=== PATIENT | male | born 1955 | race Caucasian/White ===

== ENCOUNTER 2017-02-15 20:48 | Observation (INO) | payer OTHER ==
[~2017-02-15] VITALS: Ht 180.3 cm; Wt 172.4 kg
--- NOTE | 2017-02-15 21:13 | ED DYSPNEA/ASTHMA COMPLAINT ---
History of Present Illness General Chief Complaint: Fall Stated Complaint: FALL S/P SYNOCOPE; COUGH, CONJESTION Source: patient, family, EMS Exam Limitations: no limitations Vital Signs & Intake/Output Vital Signs & Intake/Output Vital Signs Date Time Temp Pulse Resp B/P B/P Pulse O2 O2 Flow FiO2 Mean Ox Delivery Rate 02/16 0016 16 95 Nasal 2.0L Cannula 02/15 2348 94 02/15 2253 98.5 88 20 130/60 91 Room Air 02/15 2051 98.3 88 18 157/80 96 Room Air ED Intake and Output 02/16 0000 02/15 1200 Intake Total Output Total Balance Patient 380 lb Weight Weight Reported by Patient Measurement Method Allergies Uncoded Allergies: Food Allergies NKA Med Allergies NKDA Triage Note: PT BIBA FROM [facility] IN [place] C/[place] F[place]. PT A&0X3 ON ARRRIVAL, PT STATES HE HAS HAD A PRODUCTIVE COUGH WITH GREEN SPUTUM FOR 1X WEEK THAT LEAD TO INCREASED SOB. PT STATES HE WAS DRINKING TONIGHT TO CELEBRATE HIS BIRTHDAY (5+ BEERS) PT STATES "I WAS SITTING ON THE BAR STOOL FELT CONGESTED, STARTED TO COUGH, LOST MY BREATH AND APPARENTLY I PASSED OUT" +LOC, PT STATES THAT EMS STATED HE FELL STRAIGHT BACK. PT AMBULATORY ON SCENE PER EMS. PER EMS PT HAD AN ICE PACK ON RIGHT SIDE OF HEAD WHEN THEY ARRIVED. PT DENIES ANY NECK OR PIEDRA TENDERNESS AT THIS TIME. PT STATES THAT HIS MID BACK IS 10/10 PAIN. PT STATES WHEN HE LIFTS LEFT ARM (FULL ROM) ABOVE HIS HEAD HE HAS PAIN. PT PLACED ON MONITOR. PT CHANGED INTO GOWN. PT STATED LAST SELF MEDICATED WITH MUCINEX THIS MORNING WITH NO RELIEF. Triage Nurses Notes Reviewed? yes Onset: Abrupt Duration: minute(s):, day(s):, constant Timing: single episode today HPI: 62-year-old male comes into the emergency room for further evaluation after passing out earlier prior to arrival. Patient reports that he's been sick for the past week with shortness of breath and cough with some mucus production. He reports that he was at the bar having a few beers BECAUSE ITS his birthday. He went to sit on the chair and then does not remember what happened and woke up on the ground. Denies any preceding chest pain palpitations. Denies anyvomiting. Denies any prior history of this. He reports that since the fall he has been experiencing some upper back pain that hurts. (Marcus Pearson) Past History Travel History Traveled to [place] past 21 day No Medical History Any Pertinent Medical History? see below for history Neurological: NONE EENT: NONE Cardiovascular: hypertension Respiratory: NONE Gastrointestinal: NONE Hepatic: NONE Renal: NONE Musculoskeletal: NONE Psychiatric: depression Endocrine: NONE Influenza Vaccine: 12/15/07 Surgical History Surgical History: non-contributory Psychosocial History Services at Home None What is your primary language Syrian Tobacco Use: Never used ETOH Use: heavy use Illicit Drug Use: denies illicit drug use Family History Hx Contributory? No (Marcus Pearson) Review of Systems Review of Systems Constitutional: Reports: no symptoms. EENTM: Reports: no symptoms. Respiratory: Reports: see HPI. Cardiovascular: Reports: no symptoms. GI: Reports: no symptoms. Genitourinary: Reports: no symptoms. Musculoskeletal: Reports: see HPI. Skin: Reports: no symptoms. Neurological/Psychological: Reports: no symptoms. Hematologic/Endocrine: Reports: no symptoms. Immunologic/Allergic: Reports: no symptoms. All Other Systems: Reviewed and Negative (Marcus Pearson) Physical Exam Physical Exam General Appearance: well developed/nourished, no apparent distress, alert, awake Head: atraumatic, normal appearance Eyes: Bilateral: normal appearance. Ears, Nose, Throat: normal ENT inspection, hearing grossly normal Neck: normal inspection Respiratory: normal breath sounds, no respiratory distress Cardiovascular: regular rate/rhythm Gastrointestinal: soft Extremities: normal inspection Neurologic/Psych: awake, alert, oriented x 3, normal gait Skin: intact, normal color Core Measures ACS in differential dx? No CVA/TIA Diagnosis No Sepsis Present: No Sepsis Focused Exam Completed? No (Marcus Pearson) Progress Differential Diagnosis: asthma, bronchitis, CHF, COPD, pericarditis, pulmonary embolism, pneumonia, pneumothorax, unstable angina, cardiac arrhythmia, valvular disorder, Plan of Care: Orders Procedure Date/time Status Regular Diet 02/16 B Active Patient Data 02/16 38 Active OXYGEN SETUP (GEN) 02/16 17 Active Saline Lock 02/[address] in observation 02/16 17 Active Vital Signs 02/16 17 Active Activity/Ambulation 02/16 17 Active Code Status 02/16 17 Active Add-on Test (ER Only) 02/16 2112 Active Telemetry/Etl Lead 02/15 2105 Active TROPONIN LEVEL 02/15 2105 Complete ETHANOL 02/15 2105 Complete D-DIMER 02/15 2105 Complete COMPREHENSIVE METABOLIC PANEL 02/15 2105 Complete CBC WITHOUT DIFFERENTIAL 02/15 2105 Complete B-TYPE NATRIURETIC PEP (BNP) 02/15 2105 Complete EKG 02/15 2101 Active Current Medications Sig/Jenna Start time Last Medication Dose Stop Time Status Admin Hydromorphone HCl 1 MG ONCE ONE 02/16 99 UNVr 02/16 (Dilaudid) 02/16 Laboratory Tests 02/15/172124: Anion Gap 14, Estimated GFR > 60, BUN/Creatinine Ratio 20.0, Glucose 98, Calcium 8.9, Total Bilirubin 0.3, AST 26, ALT 43, Alkaline Phosphatase 64, Troponin I 0.01, Lmm-D-Vjkrnhosyfz Pept 116, Total Protein 6.5, Albumin 3.6, Globulin 2.9, Albumin/Globulin Ratio 1.2, D-Dimer High Sensitivty 256 H, CBC w Diff NO MAN DIFF REQ, RBC 4.45 L, MCV 91.9, MCH 31.4 H, RDW 13.7, MPV 8.2, Gran % 65.9, Lymphocytes % 19.2 L, Monocytes % 9.5 H, Eosinophils % 4.1, Basophils % 1.3, Absolute Granulocytes 7.6 H, Absolute Lymphocytes 2.2, Absolute Monocytes 1.1 H, Absolute Eosinophils 0.5, Absolute Basophils 0.2, PUBS MCHC 34.2, Serum Alcohol 108.0 Diagnostic Imaging: Viewed by Me: CT Scan. Discussed w/RAD: CT Scan. Radiology Impression: PATIENT: ULISES DAVIS PRESENT AGE: 62 PATIENT ACCOUNT NO: [id number] : 56 LOCATION: [facility] ORDERING PHYSICIAN: Marcus CLEMONS SERVICE DATE: 02/15/17 EXAM TYPE : CAT - CT CHEST WO IV CONTRAST EXAMINATION: CT CHEST WITHOUT CONTRAST CLINICAL INFORMATION: Pain. Syncope. COMPARISON: 03/16/2009. TECHNIQUE: Contiguous axial thin section helical images of the chest were performed without contrast. The data set was reformatted in the coronal and sagittal planes and reviewed on an independent workstation. DLP: 1446 mGy-cm. FINDINGS: The heart is of normal size. There is no pericardial effusion. There is neither mediastinal, hilar nor axillary lymphadenopathy. There are no chest wall masses. Review of lung windows demonstrates that there are neither pleural effusions nor pneumothoraces. There are no consolidations. There is a subpleural mass within the left hemithorax lateral to the lingula measuring 1.1 x 2.8 cm identified in image 261/528. This is increased in size from the exam approximately 8 years ago.. Images of the upper abdomen demonstrate that the liver is of normal size and attenuation without focal lesions. Normal adrenal glands are identified. There is a calculus within the gallbladder lumen without gallbladder wall thickening. Bone windows: Neither sclerotic nor lytic bone lesions are identified. IMPRESSION: No evidence for acute thoracic injury. Interval increase in size of subpleural left hemithoracic mass adjacent to the lingula. This is demonstrated slow growth over the past 8 years. Cholelithiasis without evidence of cholecystitis. DICTATED BY: Lokesh Rose MD DATE/TIME DICTATED:02/15/172241 TRACK VEHICLE REPAIRER:LIYA DATE/TIME TRANSCRIBED:02/15/172241 CONFIDENTIAL, DO NOT COPY WITHOUT APPROPRIATE AUTHORIZATION. <Electronically signed in Other Vendor System> SIGNED BY: Lokesh Rose MD 02/15/172250 Initial ED EKG: normal sinus rhythm, rate (89), Borderline T-wave abnormalities (Marcus Pearson) Departure Departure Disposition: STILL A PATIENT Condition: Stable Clinical Impression Primary Impression: Syncope and collapse Secondary Impressions: Lung mass Referrals: Angie Hall MD (PCP/Family) Departure Forms: Customer Survey General Discharge Information Observation Note Spoke With: Kellen Koroma MD Physician Advisor Notified: FAHAD MONTALVO DO Place Patient In: Non-ED OBS Care Area Rationale for Observation: My rational for observation is as follows . Patient will require cardiac telemetry. Serial troponins. Possibly echocardiogram. Cardiac consultation. Pulmonary consultation. Not medically safe for discharge at this time. (Marcus Pearson) PA/PROGRAM RESEARCH SPECIALIST Co-Sign Statement Statement: ED Attending supervision documentation- x I saw and evaluated the patient. I have also reviewed all the pertinent lab results and diagnostic results. I agree with the findings and the plan of care as documented in the PA's/PROGRAM RESEARCH SPECIALIST's documentation. Syncope unclear etiology [] I have reviewed the ED Record and agree with the PA's/PROGRAM RESEARCH SPECIALIST's documentation. [] Additions or exceptions (if any) to the PAs/PROGRAM RESEARCH SPECIALIST's note and plan are summarized below: [] (Eliu MCDERMOTT,Federico) Critical Care Note Critical Care Note Critical Care Time: non-applicable (Marcus Pearson)
[2017-02-15 21:39] LABS: ABSOLUTE BASOPHIL COUNT 0.2 /CUMM (0.0-0.2); ABSOLUTE EOSINOPHIL COUNT 0.5 /CUMM (0.0-0.7); ABSOLUTE GRANULOCYTE CT 7.6 /CUMM (1.4-6.5); ABSOLUTE LYMPH COUNT 2.2 /CUMM (1.2-3.4); ABSOLUTE MONOCYTE COUNT 1.1 /CUMM (0.10-0.60); BASOPHIL % 1.3 % (0.0-2.0); EOSINOPHIL % 4.1 % (0-5); GRANULOCYTE % 65.9 % (42.2-75.2); HEMATOCRIT 40.9 % (42-52); MEAN CORPUSCULAR HGB 31.4 PG (27.0-31.0); MEAN CORPUSCULAR HGB CONC 34.2 G/DL (33.0-37.0); MEAN CORPUSCULAR VOLUME 91.9 FL (80.0-94.0); MEAN PLATELET VOLUME 8.2 FL (7.4-10.4); PLATELET COUNT 278 /CUMM (130-400); RBC DISTRIBUTION WIDTH 13.7 % (11.5-14.5); RED BLOOD CELL CT 4.45 /CUMM (4.70-6.10); WHITE BLOOD CELL COUNT 11.5 /CUMM (4.8-10.8)
--- NOTE | 2017-02-15 22:51 | CT SCAN REPORT ---
EXAMINATION: CT CHEST WITHOUT CONTRAST CLINICAL INFORMATION: Pain. Syncope. COMPARISON: 03/16/2009. TECHNIQUE: Contiguous axial thin section helical images of the chest were performed without contrast. The data set was reformatted in the coronal and sagittal planes and reviewed on an independent workstation. DLP: 1446 mGy-cm. FINDINGS: The heart is of normal size. There is no pericardial effusion. There is neither mediastinal, hilar nor axillary lymphadenopathy. There are no chest wall masses. Review of lung windows demonstrates that there are neither pleural effusions nor pneumothoraces. There are no consolidations. There is a subpleural mass within the left hemithorax lateral to the lingula measuring 1.1 x 2.8 cm identified in image 261/528. This is increased in size from the exam approximately 8 years ago.. Images of the upper abdomen demonstrate that the liver is of normal size and attenuation without focal lesions. Normal adrenal glands are identified. There is a calculus within the gallbladder lumen without gallbladder wall thickening. Bone windows: Neither sclerotic nor lytic bone lesions are identified. IMPRESSION: No evidence for acute thoracic injury. Interval increase in size of subpleural left hemithoracic mass adjacent to the lingula. This is demonstrated slow growth over the past 8 years. Cholelithiasis without evidence of cholecystitis.
--- NOTE | 2017-02-16 01:25 | History & Physical ---
Rafael Lennon MD 02/16/17 0124: General Information and HPI MD Statement: I have seen and personally examined ULISES DAVIS and documented this H&P. The patient is a 62 year old M who presented with a patient stated chief complaint of [passing out and fall]. Source of Information: patient, old records Exam Limitations: no limitations History of Present Illness: 62 y/o male with PMH of HTN, CHAS on CPAP, depression presents this admission with chief complaint of fall after passing out. Patient states that earlier this evening he was out with friends for dinner and drinks to celebrate his birthday. States that he does not remember falling or passing out. States the last thing he remembers is waking up on the floor. States he was told he had passed out for a few seconds. Patient denies symptoms of seizure like activity, denies urinary or fecal incontinence, metallic taste in mouth or confusion after the episode. States he was told he hit his head however did not recall. Denies any headache or pain. Denies visual disturbances. Prior to his syncopal episode patient states that he had a coughing fit. Patient denies any chest pain, warmth, palpitations, lightheadedness prior to losing consciousness. Patient states this has never happened before. States that he's had a productive cough with greenish yellow phlegm for the past week since . States he received his flu shot one day prior to feeling ill. Patient recently underwent an UGI Endoscopy in preparation for bariatric surgery. Has been following with a educational recruiter for diet management. States his last visit was today. Does not further elaborate on current diet. Patient states he has been going for an ECHO for presurgical evaluation - states he believes his calender wind up helper is Dr. Reaves. ROS: + SOB with exertion and orthopnea. Denies fever, chills, n/v/c/d, PMH: as above, basal cell carcinoma PSH: appendectomy SH: Drinks 6-7 beers per week, denies tobacco or illicit drug use. 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 FH: no history of sudden cardiac or significant cardiac history in family Allergies: NKA to medication/food/enviroment Meds: Patient states he believes he takes hydrochlorothiazide 25mg and lisinopril 20mg. Also states he takes two medications for depression. Is unsure of the names/doses. States he thinks one is wellbutrin 100mg BID. On admission: Vitals: T: 98.5, HR: 88, RR: 16-20, BP: 130/60, Pulse Ox: 91-96% NC 2.0L NC Labs: WBC: 11.5, H/H: 14.0/40.9, Platelets: 278 Na: 138, K: 4.3, Cl: 100, CO2: 25, BUN: 16, Cr: 0.8, Glucose: 98, Calcium: 8.9, Tbili: 0.3, AST: 26, ALT: 43, Alk Phos: 64, Troponin: 0.91, BNP: 116, D-dimer: 256, Alcohol level: 108.0 EKG: CT Chest: No evidence for acute thoracic injury. Interval increase in size of subpleural left hemithoracic mass adjacent to the lingula. This is demonstrated slow growth over the past 8 years. Cholelithiasis without evidence of cholecystitis. In the ED: DuoNeb Treatment x1, Dilaudid 1mg IV x2 Allergies/Medications Allergies: Coded Allergies: No Known Allergies (02/16/17) Past History Travel History Traveled to [place] past 21 day No Medical History Neurological: NONE EENT: NONE Cardiovascular: hypertension Respiratory: NONE Gastrointestinal: NONE Hepatic: NONE Renal: NONE Musculoskeletal: NONE Psychiatric: depression Endocrine: NONE Influenza Vaccine: 12/15/07 Surgical History Surgical History: non-contributory Past Family/Social History Psychosocial History Services at Home: None ETOH Use: heavy use Illicit Drug Use: denies illicit drug use Review of Systems Review of Systems Constitutional: Denies: chills, fever. Cardiovascular: Reports: see HPI. Respiratory: Reports: see HPI. GI: Denies: no symptoms. Genitourinary: Denies: no symptoms. Musculoskeletal: Denies: no symptoms. Skin: Reports: moles. Neurological/Psychological: Reports: anxiety, depressed. Exam & Diagnostic Data Last 24 Hrs of Vital Signs/I&O Vital Signs Date Time Temp Pulse Resp B/P B/P Pulse O2 O2 Flow FiO2 Mean Ox Delivery Rate 02/16 1725 99.4 80 18 / 97 Room Air 02/16 1714 99.4 80 18 15302/16 1714 99.4 80 18 153/67 97 Room Air 02/16 1604 98.0 78 18 154/78 95 Room Air 02/16 1446 98.5 81 18 162/71 95 Room Air 02/16 1034 98.4 77 18 173/73 02/16 1011 98.1 73 19 158/74 02/16 0753 98.1 73 19 158/74 95 Nasal 2.0L Cannula 02/16 0605 98.2 78 20 147/68 96 Nasal 2.0L Cannula 02/16 0302 65 20 138/68 95 Nasal 2.0L Cannula 02/16 0016 16 95 Nasal 2.0L Cannula 02/15 2348 94 02/15 2253 98.5 88 20 130/60 91 Room Air 02/15 2052 98.3 88 18 157/80 96 Room Air Intake & Output 02/16 1600 02/16 0800 02/16 0000 Intake Total 600 Output Total Balance 600 Intake, Oral 600 Patient 380 lb 380 lb Weight Weight Reported by Patient Measurement Method Physical Exam General Appearance Alert, Oriented X3, Cooperative, No Acute Distress HEENT Atraumatic, PERRLA, EOMI, Mucous Membr. moist/pink Neck Supple, No JVD Cardiovascular Regular Rate, Normal S1, Normal S2, No Murmurs Lungs Clear to Auscultation, Normal Air Movement Abdomen Normal Bowel Sounds, Soft, No Tenderness Neurological Normal Speech, Strength at 5/5 X4 Ext, Normal Tone, Sensation Intact, Cranial Nerves 3-12 NL Extremities No Clubbing, No Cyanosis, Normal Pulses, No Tenderness/Swelling, bilateral lower extremity edema with chronic venous stasis changes Vascular Normal Pulses, Pulses Symmetrical Last 24 Hrs of Labs/Brian: Laboratory Tests 02/15/172124: Anion Gap 14, Estimated GFR > 60, BUN/Creatinine Ratio 20.0, Glucose 98, Calcium 8.9, Total Bilirubin 0.3, AST 26, ALT 43, Alkaline Phosphatase 64, Troponin I 0.01, Ohe-L-Ecxdunursez Pept 116, Total Protein 6.5, Albumin 3.6, Globulin 2.9, Albumin/Globulin Ratio 1.2, D-Dimer High Sensitivty 256 H, CBC w Diff NO MAN DIFF REQ, RBC 4.45 L, MCV 91.9, MCH 31.4 H, RDW 13.7, MPV 8.2, Gran % 65.9, Lymphocytes % 19.2 L, Monocytes % 9.5 H, Eosinophils % 4.1, Basophils % 1.3, Absolute Granulocytes 7.6 H, Absolute Lymphocytes 2.2, Absolute Monocytes 1.1 H, Absolute Eosinophils 0.5, Absolute Basophils 0.2, PUBS MCHC 34.2, Serum Alcohol 108.0 Microbiology 02/16 634 URINE ROUT: Legionella Antigen - COMP 02/16 634 URINE ROUT: Streptococcus pneumoniae Antigen (M - COMP 02/16 0450 NASOPHARYN: Influenza Virus A & B Rapid Smear - COMP 02/16 209 LOWER RESP: Respiratory Culture - COLB 02/16 209 LOWER RESP: Gram Stain - COLB Assessment/Plan Assessment: Patient is a 62 y/o male with PMH of HTN, CHAS on CPAP, depression presents this admission with a syncopal episode most likely vasovagal 2/2 to intense coughing fit. Patient will be observed on the telemetry floor for the followin. Syncopal episode likely 2/2 to vasovagal. Other etiologities to consider include neurocardiac however less likely based on presentations. Patient recently underwent presurgical evaluation with a reportedly normal ECHO. * serial troponin and EKG * Cardiology consult in AM: pt reports seeing Dr. Reaves * Obtain ECHO findings from oupatient calender wind up helper office * Continue to monitor on telemetry 2. Pulmonary nodule- CT chest shows an enlarging subpleural nodule in the left lung which has increased in size from previous imaging 8 years prior * outpatient pulmonary follow up 3. Productive cough - patient experiencing purulent cough for the past few weeks * Will get rapid flu * Will send for urine legionella and strep * Will give TRC and DuoNebs as required * Will give mucinex as needed 4. History of HTN * Continue hydrochlorothiazide and lisinopril * Confirm home medications and dosing with pharmacy in AM 5. History of CHAS on CPAP * Continue CPAP at night. 6. History of Depression * Continue on Welbutrin * Confirm with pharmacy in AM of home dose and second medication Diet: Heart healthy diet DVT PPx: Heparin SC Code: Full code As Ranked By This Provider Problem List: 1. Syncope and collapse 2. Lung mass Core Measures/Misc (10/30) Acute Coronary Syndrome ACS Diagnosis: No Congestive Heart Failure Congestive Heart Failure Diagnosis No Cerebrovascular Accident CVA/TIA Diagnosis: No VTE (View Protocol) VTE Risk Factors Age>40 No Mechanical VTE Prophylaxis d/t N/A MechProphylax Ordered No VTE Pharm Prophylaxis d/t NA PharmProphylax ordered Sepsis (View protocol) Sepsis Present: No Isabel Quezada 02/16/17 0126: General Information and HPI Allergies/Medications Home Med list Bupropion HCl (Wellbutrin Sr) 100 MG TABLET.ER 1 TAB PO BID DEPRESSION ( Reported) Hydrochlorothiazide 25 MG TABLET 1 TAB PO DAILY htn (Reported) Lisinopril 20 MG TABLET 1 TAB PO DAILY HTN (Reported) Resident Review Statement Resident Statement: examined this patient, discussed with internet network specialist, agreed with internet network specialist, discussed with family, reviewed EMR data (avail), discussed with nursing , discussed with case mgmt, reviewed images, amended to note Other Findings: 62-year-old male with a past medical history of hypertension who presents to the ER after having passed out earlier this evening. Apparently he's been sick for the past few weeks with shortness of breath and productive purulent cough. Apparently he was at the bar this eevning and drinking few beers. States that he had a coughing fit ansd subsequently passed out, denies any CP, palpitations, diaopheresis, seizure like activity. Endorses hitting his head, but deneis any confusion, blurry vision. Apparentky took th eflu shot this year. Denies any fevers, chills.. Of note he is scheduled for a bariatric surgery and reportedly had an echo about 2 months ago witha calender wind up helper in [place], but doesnt recall the name. He deneis any pasty episodes of syncope. He does endorse drinking 6-7 beers on a weekly basis, never been hospitalized for alchol withdrawl before. Apparently has hx of basal cell carcinoma. Vitals in the ED blood pressure 130/60, respiratory rate of 16, pulse 88, afebrile saturating 91% on room air. On physical exam he is alert and oriented 3 and in no acute distress sitting comfortably in a recliner. HEENT revealed PERRLA, dry mucous membranes. Examination of the neck did not reveal an elevated JVD or cervical lymphadenopathy. Cardiovascular exam pertinent for normal S1, S2, no murmurs, rubs or gallops appreciated. Chest was clear to auscultation bilaterally. Abdominal exam was benign abdomen nondistended, nontender normal bowel sounds in all 4 quadrants. Examination of the lower extremities revealed chronic venous stasis changes with bilateral 2+ edema pitting. Labs pertinent for leukocytosis with a white blood cell count 11,500, H&H of 14.0/40.9, platelet count of 278,000. Serum chemistries pertinent for sodium of 138, potassium 4.3, bicarbonate 25, anion gap 14, BUN 60 mg 2.8. LFTs unremarkable with an AST/LTS 26/43, total bili 0.3, alkaline phosphatase of 64 with resection of troponin 0.01 and a proBNP of 116. D-dimer was 256. Serum alcohol 108. CT of the chest without contrast was done which showed no evidence for acute thoracic injury, and interval increase in the size of subpleural left hemithoracic mass adjacent to the lingula which has shown slow growth over the past 8 years. There is cholelithiasis without evidence of cholecystitis. EKG revealed NSR, HR: 90; 1st degree of AV block, no ST-T changes. In the ER he received treatment with albuterol and hypertropia, and was given IV Dilaudid 1 mg 2. Assessment and plan Place on observation on telemetry #Syncope Most likely vasovagal given the coughing bout, versus PE (unlikely given normal D-dimer) versus valvular pathology (unlikely aortic stenosis, no murmer on exam, reportedly normal echo recently). We will trend troponin and EKG to rule out ACS at 2 AM and 9AM Echocardiogram to be obtained from calender wind up helper's office Dr. Gardner. Cardiology consult in a.m. with Dr. Butler's office D-dimer is negative and so doubt that he has pulmonary embolism giving rise to the syncopal episode. #Hypertension Continue on hydrochlorothiazide 25 mg daily and lisinopril 20 mg daily #CHAS on CPAP Continue patient on CPAP at night. #Subpleural lesion on CAT scan which has increased in size from that [address] pulmonary consult in a.m. #Purulent productive cough Most likely secondary to viral with superimposed bacterial bronchitis however patient is afebrile, does have mild leukocytosis which can be reactionary however will rule out for influenza A, send lower respiratory culture and check urinary antigen for Legionella and strep pneumo #Depression Continue on Wellbutrin, please check with his pharmacy regarding his second medication for depression. -Diet Heart healthy DVT prophylaxis Heparin 5000 international units 3 times a day subcutaneous - CODE STATUS Full code Kellen Koroma 02/16/17 0550: Attending MD Review Statement Attending Statement Attending MD Statement: examined this patient, discuss w/resident/PA/TRANSIT DEPARTMENT CLERK, agreed w/resident/PA/TRANSIT DEPARTMENT CLERK, reviewed EMR data (avail), reviewed images, amended to note Attending Assessment/Plan: CC: Passed out PMH: HTN, CHAS on CPAP, depression, morbid obesity Patient was brought in ER through EMS from a restaurant in [place] after a syncopal episode. Patient was having a few beers in the restaurant, last thing he remembers he had severe coughing fit and next thing he remembers is waking up on the floor. This episode witnessed by patient's friends and denied any seizure -like activity, bowel or bladder incontinence, tongue bite, confusion after this episode. Patient denies any chest pain or palpitations or feeling dizzy before the episode. Patient never had similar episodes in the past. Since last 1 week or so patient has been having increased shortness of breath, productive cough but denies any pleuritic chest pain, fever or chills. Patient is currently undergoing evaluation for bariatric surgery, following educational recruiter but does not provide details of his diet. Patient drinks 5-6 beers per week. Currently denies any bony or joint pains, any muscular pains. Vitals: Afebrile, pulse 80s, RR 20, blood pressure 130/60, saturating well on 2 L nasal cannula On examination: A O 3, cooperative, morbidly obese, no acute distress, neck supple, JVD could not be appreciated, no lymphadenopathy, mucosa moist, no focal neurological deficit, bilateral lower extremity edema with chronic skin changes, CVS: S1-S2, RRR. RS: Clear to auscultate bilaterally. Abdomen: Soft, NT, ND, bowel sounds present. Labs: WBC 11.5, otherwise CBC, BMP, LFT, troponin, proBNP, d-dimer unremarkable. Serum alcohol 108 CT chest: No evidence for acute thoracic injury. Interval increase in size of subpleural left hemithoracic mass adjacent to the lingula. This is demonstrated slow growth over the past 8 years. Cholelithiasis without evidence of cholecystitis. ECG: First-degree AV block Assessment and plan 62-year-old male came to ER after syncopal episode happened in a restaurant after drinking 5+ beer, immediately after extensive coughing fit. Patient woke up on the floor and does not recall the episode, no signs suggestive of seizure, no prodrome. Appears that patient may have vasovagal but any cardiac causes should be ruled out. Off note patient is found to have 1.1 cm pulmonary nodule. + Syncope + Pulmonary nodule + History of HTN, CHAS on CPAP, depression, morbid obesity - Place in observation in telemetry - Continuous telemetry monitoring - Serial troponin and EKGs - Orthostatic vitals - Obtain 2-D echocardiogram from outpatient facility due to improvements back - Cardiology consult - Outpatient pulmonology follow-up for pulmonary nodule which is increasing in size compared to CT scan done 8 years of back - DVT prophylaxis - TRC nebs with albuterol, Mucinex 600 by mouth twice a day, check rapid flu - Continue on his home medications
[2017-02-16] MEDS ORDERED: LISINOPRIL20 M1 PO (02:15)
[2017-02-16] MEDS ORDERED: HYDRALAZINE HCL25 M1 PO (02:15)
[2017-02-16] MEDS ORDERED: WELLBUTRIN SR100 M2 PO (02:16)
[2017-02-16] MEDS ORDERED: HYDROCHLOROTHIA25 M1 PO (04:01)
[2017-02-16 06:28] LABS: ABSOLUTE BASOPHIL COUNT 0 /CUMM (0.0-0.2); ABSOLUTE EOSINOPHIL COUNT 0.2 /CUMM (0.0-0.7); ABSOLUTE GRANULOCYTE CT 8.2 /CUMM (1.4-6.5); ABSOLUTE LYMPH COUNT 1.4 /CUMM (1.2-3.4); ABSOLUTE MONOCYTE COUNT 0.6 /CUMM (0.10-0.60); BASOPHIL % 0.2 % (0.0-2.0); EOSINOPHIL % 1.7 % (0-5); GRANULOCYTE % 79.1 % (42.2-75.2); HEMATOCRIT 42.8 % (42-52); MEAN CORPUSCULAR HGB 31.3 PG (27.0-31.0); MEAN CORPUSCULAR HGB CONC 33.9 G/DL (33.0-37.0); MEAN CORPUSCULAR VOLUME 92.2 FL (80.0-94.0); MEAN PLATELET VOLUME 8.4 FL (7.4-10.4); PLATELET COUNT 298 /CUMM (130-400); RED BLOOD CELL CT 4.64 /CUMM (4.70-6.10); WHITE BLOOD CELL COUNT 10.4 /CUMM (4.8-10.8)
--- NOTE | 2017-02-16 07:54 | Event Note ---
Event Note Event Note: We are going to continue observation and keep the patient on cafeteria monitor for 24 hours as per cardiology recommendations. He recently had echocardiogram at [facility] office of Dr. Butler * There is a probability of congestive heart failur ewe are going to diurese patient with Lasix 40 mg IV and monitor his input and output along with daily weight * I believe patient would benefit from continuing observation for now and it is unsafe to be discharged at this point till the echo results are viewed * Further disposition will be rendered after echo results are obtained
[2017-02-16 10:34] VITALS: BP 173/73
--- NOTE | 2017-02-16 13:38 | PN- Att Addend ---
Attending Addendum Attending Brief Note Patient seen and examined. Presented to the ER after syncopal episode. Apparently had been out drinking and developed a coughing spell after which he passed out. No head trauma. No similar complaints of loss of consciousness in the past. He does admit to having coughing spells frequently. When I inquired further regarding his coughing spells he states that this has been going on for a while. Coughing spells are not related to eating, spontaneously. He also reports increasing shortness of breath and worsening lower extremity edema. He states that for the past week he has had to sleep in a chair and is unable to lie flat any longer in bed. On examination he has no jugular venous distention. Heart sounds are regular with no audible murmur. He has failed to bilaterally with no added sounds. Abdomen is obese soft and nontender with normal bowel sounds. He has bilateral 2+ lower extremity edema. Problems: 1. Syncope; likely vasovagal from prolonged coughing 2. Probable congestive heart failure 3. Chronic bilateral lower extremity edema 4. Obesity; currently being evaluated for possible bariatric surgery 5. 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 Recommendations: -Begin patient on Lasix 40 mg IV daily. -Monitor daily weight. Monitor input output. -Follow results of echocardiogram. -Bilateral compression wrapping to lower extremities. -Continue PAIGE inhibitor. Hold hydrochlorothiazide while patient is on Lasix. -Pulmonology referral as an outpatient for follow-up of left superior mass. -Check orthostatic vitals. -Cardiology consultation for evaluation of nonspecific EKG changes noted in lead II.
--- NOTE | 2017-02-16 14:31 | Cons- Cardiology ---
General Information and HPI Consulting Request Date of Consult: 02/16/17 Requested By: Ava Charles MD Reason for Consult: Syncope Source of Information: patient Exam Limitations: no limitations History of Present Illness: This is a 62-year-old gentleman who has been admitted for a syncopal episode He apparently was celebrating his birthday had a few drinks and dinner and thereafter had a coughing spell and the next thing he remembers was finding himself on the floor. He has had several coughing spells for which during which an after he gets lightheaded. This is the first time he has had tino syncope. He sometimes has felt lightheaded after defecation. There's been no other history of syncope. His activity is limited because of his weight being nearly 380 pounds. 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 He denies any chest pain no unusual shortness of breath. He is Used to shortness of breath related to his weight. [facility] is [facility]ric [facility] He is borderline diabetes, hypertension for which she is being treated, has a history of sleep apnea. He is a moderate to heavy alcoholic consuming 5 drinks a day. Allergies/Medications Allergies: Coded Allergies: No Known Allergies (02/16/17) Home Med List: Bupropion HCl (Wellbutrin Sr) 100 MG TABLET.ER 1 TAB PO BID DEPRESSION ( Reported) Hydrochlorothiazide 25 MG TABLET 1 TAB PO DAILY htn (Reported) Lisinopril 20 MG TABLET 1 TAB PO DAILY HTN (Reported) Current Medications: Current Medications Sig/Jenna Start time Last Medication Dose Route Stop Time Status Admin Acetaminophen 500 MG Q6-PRN PRN 02/16 1300 AC PO Albuterol Sulfate 3 ML ONCE ONE 02/15 2315 DC 02/15 INH 02/15 2316 2348 Bupropion HCl 100 MG BID 02/16 1000 AC 02/16 PO 1011 Guaifenesin 600 MG Q12 02/16 1000 AC 02/16 PO 1011 Heparin Sodium 5,000 UNIT Q8 02/16 0600 AC (Porcine) SC Hydralazine HCl 25 MG DAILY 02/16 1000 CAN PO Hydrochlorothiazide 25 MG DAILY 02/16 1000 AC 02/16 PO 1011 Hydromorphone HCl 1 MG ONCE ONE 02/16 0100 DC 02/16 IV 02/16 0101 0056 Hydromorphone HCl 0 .STK-MED ONE 02/16 0050 DC .ROUTE Hydromorphone HCl 0 .STK-MED ONE 02/15 2340 DC .ROUTE Hydromorphone HCl 1 MG ONCE ONE 02/15 2315 DC 02/15 IV 02/15 2316 2350 Ibuprofen 0 .STK-MED ONE 02/16 1312 DC PO Ibuprofen 400 MG Q6P PRN 02/16 1300 AC 02/16 PO 1312 Ipratropium [place] 2.5 ML ONCE ONE 02/15 2315 DC 02/15 INH 02/15 2316 2348 Lidocaine 1 PAT DAILY 02/16 1259 AC 02/16 EXT 1312 Lisinopril 20 MG DAILY 02/16 1000 AC 02/16 PO 1011 Review of Systems Review of Systems Constitutional: Denies: no symptoms. EENTM: Denies: no symptoms. Cardiovascular: Reports: no symptoms. Respiratory: Reports: no symptoms. GI: Denies: no symptoms. Genitourinary: Denies: no symptoms. Musculoskeletal: Denies: no symptoms. Skin: Denies: no symptoms. Neurological/Psychological: Denies: no symptoms. Hematologic/Endocrine: Denies: no symptoms. Past History Travel History Traveled to [place] past 21 day No Medical History Neurological: NONE EENT: NONE Cardiovascular: hypertension Respiratory: NONE Gastrointestinal: NONE Hepatic: NONE Renal: NONE Musculoskeletal: NONE Psychiatric: depression Endocrine: NONE Surgical History Surgical History: non-contributory Psychosocial History Services at Home: None Smoking Status: Never Smoked ETOH Use: heavy use Illicit Drug Use: denies illicit drug use Exam & Diagnostic Data Vital Signs and I&O Vital Signs Date Time Temp Pulse Resp B/P B/P Pulse O2 O2 Flow FiO2 Mean Ox Delivery Rate 02/16 1034 98.4 77 18 173/73 02/16 1011 98.1 73 19 158/74 02/16 0753 98.1 73 19 158/74 95 Nasal 2.0L Cannula 02/16 0605 98.2 78 20 147/68 96 Nasal 2.0L Cannula 02/16 0302 65 20 138/68 95 Nasal 2.0L Cannula 02/16 0016 16 95 Nasal 2.0L Cannula 02/15 2348 94 02/15 2253 98.5 88 20 130/60 91 Room Air 02/15 2051 98.3 88 18 157/80 96 Room Air Intake & Output 02/16 1600 02/16 0800 02/16 0000 02/15 1600 02/15 0800 02/15 0000 Intake Total 300 Output Total Balance 300 Intake, Oral 300 Patient 380 lb 380 lb Weight Weight Reported by Patient Measurement Method Physical Exam: On general exam patient appeared comfortable. He is sitting up in a chair. Patient appears morbidly obese. Head normocephalic atraumatic Eyes sclera anicteric conjunctiva showed no pallor extraocular muscles were normal Neck no jugular venous distention no thyroid masses no palpable nodes Chest lungs were clear bilaterally Heart regular rhythm without murmurs. Abdomen usually protuberant bowel sounds normal soft nontender Extremities no clubbing cyanosis or edema. Neurological no gross motor or sensory deficit Labs/Brian Results: Laboratory Tests 02/16 02/16 02/16 02/16 1009 0635 0557 0253 Chemistry Sodium (137 - 145 mmol/L) 141 Potassium (3.5 - 5.1 mmol/L) 4.7 Chloride (98 - 107 mmol/L) 102 Carbon Dioxide (22 - 30 mmol/L) 27 Anion Gap (5 - 16) 12 BUN (9 - 20 mg/dL) 15 Creatinine (0.7 - 1.2 mg/dL) 0.7 Estimated GFR (>60 ml/min) > 60 BUN/Creatinine Ratio (7 - 25 %) 21.4 Troponin I (<0.11 ng/ml) < 0.01 < 0.01 Hematology CBC w Diff NO MAN DIFF REQ WBC (4.8 - 10.8 /CUMM) 10.4 RBC (4.70 - 6.10 /CUMM) 4.64 L Hgb (14.0 - 18.0 G/DL) 14.5 Hct (42 - 52 %) 42.8 MCV (80.0 - 94.0 FL) 92.2 MCH (27.0 - 31.0 PG) 31.3 H RDW (11.5 - 14.5 %) 14.0 Plt Count (130 - 400 /CUMM) 298 MPV (7.4 - 10.4 FL) 8.4 Gran % (42.2 - 75.2 %) 79.1 H Lymphocytes % (20.5 - 51.1 %) 13.4 L Monocytes % (1.7 - 9.3 %) 5.6 Eosinophils % (0 - 5 %) 1.7 Basophils % (0.0 - 2.0 %) 0.2 Absolute Granulocytes (1.4 - 6.5 /CUMM) 8.2 H Absolute Lymphocytes (1.2 - 3.4 /CUMM) 1.4 Absolute Monocytes (0.10 - 0.60 /CUMM) 0.6 Absolute Eosinophils (0.0 - 0.7 /CUMM) 0.2 Absolute Basophils (0.0 - 0.2 /CUMM) 0 PUBS MCHC (33.0 - 37.0 G/DL) 33.9 Toxicology Urine Opiates Screen (>2000 NG/ML) 766.00 Methadone Screen (>300 NG/ML) < 40 Barbiturate Screen (>200 NG/ML) < 60 Ur Phencyclidine Scrn (>25 NG/ML) < 6.00 Amphetamines Screen (>1000 NG/ML) < 100 U Benzodiazepines Scrn (>200 NG/ML) < 85 Urine Cocaine Screen (>300 NG/ML) < 50 Urine Cannabis Screen (>50 NG/ML) < 5.00 02/15 2125 Chemistry Sodium (137 - 145 mmol/L) 138 Potassium (3.5 - 5.1 mmol/L) 4.3 Chloride (98 - 107 mmol/L) 100 Carbon Dioxide (22 - 30 mmol/L) 25 Anion Gap (5 - 16) 14 BUN (9 - 20 mg/dL) 16 Creatinine (0.7 - 1.2 mg/dL) 0.8 Estimated GFR (>60 ml/min) > 60 BUN/Creatinine Ratio (7 - 25 %) 20.0 Glucose (65 - 99 mg/dL) 98 Calcium (8.4 - 10.2 mg/dL) 8.9 Total Bilirubin (0.2 - 1.3 mg/dL) 0.3 AST (17 - 59 U/L) 26 ALT (21 - 72 U/L) 43 Alkaline Phosphatase (< 127 U/L) 64 Troponin I (<0.11 ng/ml) 0.01 [id number] Pept (<125 pg/mL) 116 Total Protein (6.3 - 8.2 g/dL) 6.5 Albumin (3.5 - 5.0 g/dL) 3.6 Globulin (1.9 - 4.2 gm/dL) 2.9 Albumin/Globulin Ratio (1.1 - 2.2 %) 1.2 Coagulation D-Dimer High Sensitivty (0 - 243 ng/ml) 256 H Hematology CBC w Diff NO MAN DIFF REQ WBC (4.8 - 10.8 /CUMM) 11.5 H RBC (4.70 - 6.10 /CUMM) 4.45 L Hgb (14.0 - 18.0 G/DL) 14.0 Hct (42 - 52 %) 40.9 L MCV (80.0 - 94.0 FL) 91.9 MCH (27.0 - 31.0 PG) 31.4 H RDW (11.5 - 14.5 %) 13.7 Plt Count (130 - 400 /CUMM) 278 MPV (7.4 - 10.4 FL) 8.2 Gran % (42.2 - 75.2 %) 65.9 Lymphocytes % (20.5 - 51.1 %) 19.2 L Monocytes % (1.7 - 9.3 %) 9.5 H Eosinophils % (0 - 5 %) 4.1 Basophils % (0.0 - 2.0 %) 1.3 Absolute Granulocytes (1.4 - 6.5 /CUMM) 7.6 H Absolute Lymphocytes (1.2 - 3.4 /CUMM) 2.2 Absolute Monocytes (0.10 - 0.60 /CUMM) 1.1 H Absolute Eosinophils (0.0 - 0.7 /CUMM) 0.5 Absolute Basophils (0.0 - 0.2 /CUMM) 0.2 PUBS MCHC (33.0 - 37.0 G/DL) 34.2 Toxicology Serum Alcohol (<10 MG/DL) 108.0 Diagnostic Data EKG Results Sinus rhythm with small nonspecific inferior Q waves but borderline normal CXR Results No evidence for acute thoracic injury. Interval increase in size of subpleural left hemithoracic mass adjacent to the lingula. This is demonstrated slow growth over the past 8 years. Cholelithiasis without evidence of cholecystitis. Assessment/Plan Assessment/Plan In summary this 62-year-old gentleman has the following problems #1. Syncope probably post tussive, aggravated by morbid obesity, breath holding , and possibly accompanied by excess alcohol consumption. #2. Hypertension #3. Morbid obesity planning gastric bypass surgery #4. Sleep apnea #5. Moderate to heavy alcoholic His syncope is most likely post tussive. Weight reduction would certainly help. He recently had an echocardiogram at our [place] office. The results can be retrieved tomorrow. I would observe him on telemetry for 24 hours. 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 Consult Acknowledgment - Thank you for your consult request.
[2017-02-16 17:14] VITALS: BP 153/67
[2017-02-16 17:25] VITALS: BP 153/67
[2017-02-16 22:16] VITALS: BP 140/74
[2017-02-17 00:30] VITALS: BP 138/74
[2017-02-17 05:10] VITALS: BP 130/77
[2017-02-17 05:30] VITALS: BP 160/85
--- NOTE | 2017-02-17 07:11 | PN-Observation ---
Avery MCDERMOTT,[facility] 02/17/17 0711: Observation Note Observation Note _ I have personally examined ULISES DAVIS. him disposition is uncertain at this time. Before a determination can be made, he requires continued observation for the following reasons [syncope under evluation]. Assessment/Plan Assessment: Patient is being treated and evaluated following conditions #Syncope most likely posttussive * Follow-up with PCP within 1 wk of discharge #Intermittent cough secondary to postnasal drip * Consider switching to ARB instead of PAIGE inhibitor #Left subpleural lesion 1.1 x 2.8 cm increased in size from 8 years ago. * Follow-up with Dr. Mast after discharge refferal has been provided #Morbid obesity * Follow-up for planning of gastric bypass surgery #Pt does not appear to be in CHF echo reviewed Problem List: 1. Syncope and collapse 2. Lung mass 3. Cough Subjective Follow-up For: syncope Subjective: Patient seen and examined. Resting comfortably in the chair. States that he slept in the chair last night because the bed with uncomfortable. Reports cough Review of Systems Constitutional: Reports: see HPI. Objective Last 24 Hrs of Vital Signs/I&O Vital Signs Date Time Temp Pulse Resp B/P B/P Pulse O2 O2 Flow FiO2 Mean Ox Delivery Rate 02/17 0637 98.4 74 18 165/78 94 Room Air Room Air 02/17 0530 98.0 71 24 160/85 94 02/17 0510 98.2 70 18 130/77 02/17 0030 98.5 72 18 138/74 02/17 0020 98.5 72 18 138/74 96 Room Air 02/16 2216 98.5 71 16 140/74 02/16 2216 98.5 71 16 140/74 95 Room Air 02/16 2152 98.5 71 18 140/74 95 Room Air 02/16 1725 99.4 80 18 153/67 97 Room Air 02/16 1714 99.4 80 18 153/67 02/16 1714 99.4 80 18 153/67 97 Room Air 02/16 1604 98.0 78 18 154/78 95 Room Air 02/16 1446 98.5 81 18 162/71 95 Room Air / 1034 98.4 77 18 173/73 02/16 1011 98.1 73 19 158/74 Intake & Output 02/17 1600 02/17 0800 01/05 0000 Intake Total 360 Output Total Balance 360 Intake, Oral 360 Physical Exam General Appearance: Oriented X3, Cooperative Cardiovascular: Normal S1, Normal S2 Neurological: Normal Speech Current Medications: Current Medications Sig/Jenna Start time Last Medication Dose Route Stop Time Status Admin Acetaminophen 500 MG Q6-PRN PRN 02/16 1300 AC PO Bupropion HCl 100 MG BID 02/16 1000 AC 02/16 PO 2229 Furosemide 0 .STK-MED ONE 02/17 0806 DC IV Furosemide 0 .STK-MED ONE 02/16 1457 DC IV Furosemide 40 MG DAILY 02/16 1442 AC 02/16 IV 1454 Guaifenesin 600 MG Q12 02/16 1000 AC 02/16 PO 2229 Heparin Sodium 0 .STK-MED ONE 02/17 0643 DC (Porcine) .ROUTE Heparin Sodium 5,000 UNIT Q8 02/16 0600 AC 02/17 (Porcine) SC 0641 Hydrochlorothiazide 25 MG DAILY 02/16 1000 DC 02/16 PO 1011 Ibuprofen 0 .STK-MED ONE 02/16 1312 DC PO Ibuprofen 400 MG Q6P PRN 02/16 1300 AC 02/16 PO 1312 Lidocaine 1 PAT DAILY 02/16 1259 AC 02/16 EXT 1312 Lisinopril 0 .STK-MED ONE 02/17 0806 DC PO Lisinopril 20 MG DAILY 02/16 1000 AC 02/16 PO 1011 Last 24 Hrs of Labs/Mics: Laboratory Tests 02/17/17 0544: Anion Gap 11, Estimated GFR > 60, BUN/Creatinine Ratio 22.9 02/16/17 1009: Troponin I < 0.01 Melvin MCDERMOTT,Ava 02/17/17 1133: Observation Note Observation Note _ I have personally examined DAVISULISES. him disposition is uncertain at this time. Before a determination can be made, he requires continued observation for the following reasons []. Patient seen and examined. Resting comfortably and not in acute distress. He reports feeling much better. He reports that his persistent cough has resolved overnight. Reports that he slept in a chair last night but states that this was because of some back discomfort. Patient now reports that his cough comes on predominantly when he has a postnasal drip. Currently denies any symptoms. On examination he has no jugular venous distention. Lungs are clear to auscultation bilaterally. Abdomen is obese but soft and nontender. He has bilateral pedal edema. His d-dimer is negative and echocardiogram today as well as that done with his roller cleaner previously shows no evidence of systolic or diastolic dysfunction. It does not appear that patient has congestive heart failure. With his report of postnasal drip is intermittent coughing is likely related to this. It is possible that the cough may be related to his PAIGE inhibitor therapy and other differential is that the cough may be related to his PAIGE inhibitor therapy. Recommendations: 1. Syncope likely post tussive 2. Intermittent cough secondary to postnasal drip; currently resolved. 3. Morbid obesity; planning gastric bypass surgery 4. Left subpleural lesion 1.1 x 2.8 cm increased in size from 8 years ago. Plan: -Patient is medically stable to be discharged home today. -He is to continue follow-up for planning of gastric bypass surgery. -Recommend pulmonology follow-up as an outpatient for monitoring of his superior lesion. -He is continued on his PAIGE inhibitor therapy. Consideration should be given to discontinuing this medication and switching to an ARB if cough persists. -I did discuss the patient's hospital course and discharge recommendations with his primary care provider Dr. Hall today.
--- NOTE | 2017-02-17 07:12 | Patient Discharge Instructions ---
Discharge Instructions General Discharge Information You were seen/treated for: cough spells lead to vasovagal syncope Watch for these problems: Fever, chills, chest pain, shortness of breath, passing out Special Instructions: please follow up with PCP within one week of discharge. Please follow up with your business systems analyst with in a week of discharge. Please follow-up with lung doctor for follow-up for subpleural lesion Diet Recommended Diet: Heart Healthy Activity Activity Self Limited: Yes Acute Coronary Syndrome Inclusion Criteria At DC or during hospital stay patient has or had the following: ACS DIAGNOSIS No Discharge Core Measures Meds if any: Prescribed or Continued at Discharge Meds if any: NOT Prescribed or Continued at Discharge Congestive Heart Failure Inclusion Criteria At DC or during hospital stay patient has or had the following: CHF DIAGNOSIS No Discharge Core Measures Meds if any: Prescribed or Continued at Discharge Meds if any: NOT Prescribed or Continued at Discharge Cerebrovascular accident Inclusion Criteria At DC or during hospital stay patient has or had the following: CVA/TIA Diagnosis No Discharge Core Measures Meds if any: Prescribed or Continued at Discharge Meds if any: NOT Prescribed or Continued at Discharge Venous thromboembolism Inclusion Criteria VTE Diagnosis No VTE Type NONE VTE Confirmed by (Test) NONE Discharge Core Measures - Per Current guidelines, there needs to be overlap - treatment for the first 5 days of Warfarin therapy. - If discharged on Warfarin prior to 5 days of - overlap therapy, the patient will need to be - assessed for post discharge needs including - *Post discharge parental anticoagulation - *Warfarin and/or parental anticoagulation education - *Follow up date to check INR post discharge At least 5 days overlap therapy as Inpatient No Meds if any: Prescribed or Continued at Discharge Note: Overlap Therapy is Warfarin and Anticoagulant Meds if any: NOT Prescribed or Continued at Discharge
--- NOTE | 2017-02-17 09:13 | ECHOCARDIOGRAM REPORT ---
ULISES DAVIS Age: 62 : 1955 Gender: M Exam Date: 02/16/2017 09:33 Exam Location: ER Ht (in): 71 Wt (lb): 380 BSA: 3.03 BP: 158 / 74 Ordering Physician: Isabel Quezada MD Referring Physician: Isabel Quezada MD Technologist: Luis M Estes CLARISA Room Number: 6 Indications: VALVULAR DISEASE Rhythm: Sinus Technical Quality: fair FINDINGS Left Ventricle Normal size left ventricle. Left ventricular wall thickness mildly increased. Normal left ventricular ejection fraction estimated at 60-65%. Right Ventricle Normal right ventricular size and function. Right Atrium Normal right atrial size. Left Atrium Left atrial size at the upper limits of normal. Mitral Valve Mitral valve not well visualized, grossly normal. Aortic Valve Aortic valve not well visualized, grossly normal. Tricuspid Valve Tricuspid valve not well visualized, grossly normal. Pulmonic Valve Pulmonic valve not well visualized, grossly normal. Pericardium No pericardial effusion. Great Vessels Mildly dilated proximal ascending aorta (tube). CONCLUSIONS Poor Echo window. Normal left and right ventricular systolic function with mild concentric hypertrophy. Mild dilatation of Proximal Ascending Aorta. Elvis Kearney M.D. (Electronically Signed) Final Date: 17 February 2017 09:12 MEASUREMENTS (Male / Female) Normal Values 2D ECHO LV Diastolic Diameter PLAX 4.6 cm 4.2 - 5.9 / 3.9 - 5.3 cm LV Systolic Diameter PLAX 2.9 cm 2.1 - 4.0 cm LV Fractional Shortening PLAX 37.0 % 25 - 46 % LV Ejection Fraction 2D Teich 66.9 % IVS Diastolic Thickness 1.3 cm LVPW Diastolic Thickness 1.2 cm LV Relative Wall Thickness 0.5 RV Internal Dim ED PLAX 3.3 cm 1.9 - 3.8 cm LVOT Diameter 2.3 cm Aortic Root Diameter 3.5 cm Ascending Aorta Diameter 4.3 cm DOPPLER AV Peak Velocity 183.0 cm/s AV Peak Gradient 13.4 mmHg AV Mean Velocity 132.0 cm/s AV Mean Gradient 8.0 mmHg AV Velocity Time Integral 39.7 cm LVOT Peak Velocity 166.0 cm/s LVOT Peak Gradient 11.0 mmHg LVOT Mean Velocity 123.0 cm/s LVOT Mean Gradient 7.0 mmHg LVOT Velocity Time Integral 39.3 cm LVOT Stroke Volume 163.3 cm AV Area Cont Eq vti 4.1 cm AV Area Cont Eq pk 3.8 cm MV Peak Velocity 125.0 cm/s MV Peak Gradient 6.3 mmHg MV Mean Velocity 79.9 cm/s MV Mean Gradient 3.0 mmHg Mitral E Point Velocity 94.3 cm/s Mitral A Point Velocity 88.8 cm/s Mitral E to A Ratio 1.1 MV PHT Velocity 129.0 cm/s MV Deceleration [place] 441.0 cm/s MV Pressure Half Time 87.8 ms MV Area PHT 2.5 cm MV Deceleration Time 246.0 ms MR Peak Velocity 176.0 cm/s MR Peak Gradient 12.4 mmHg TR Peak Velocity 167.0 cm/s TR Peak Gradient 11.2 mmHg Right Atrial Pressure 5.0 mmHg Pulmonary Artery Systolic Pressu 16.2 mmHg Right Ventricular Systolic Press 16.2 mmHg PV Peak Velocity 114.0 cm/s PV Peak Gradient 5.2 mmHg PV Mean Velocity 78.8 cm/s PV Mean Gradient 3.0 mmHg PV Velocity Time Integral 30.2 cm
[2017-02-17 09:23] VITALS: BP 165/78
[2017-02-17] MEDS ORDERED: WELLBUTRIN SR150 M1 PO (09:32)
[2017-02-17] MEDS ORDERED: ESCITALOPRAM OX20 MG PO (09:33)
[2017-02-17] MEDS ORDERED: LISINOPRIL10 M1 PO (09:33)
== END 2017-02-18 08:11 ==
LOC: ERH 20:48 → ERHI 02-16 00:18 → CMPBEDREQ 02-17 15:08 → ERHI 02-18 08:11
PROVIDERS: Internal Medicine Infectious Disease; Physician Assistant Medical
DX: R55 Syncope and collapse (principal); I10 Essential (primary) hypertension; G47.33 Obstructive sleep apnea (adult) (pediatric); F32.9 Major depressive disorder, single episode, unspecified; R91.1 Solitary pulmonary nodule; R05 Cough; R60.9 Edema, unspecified; E66.01 Morbid (severe) obesity due to excess calories; F10.20 Alcohol dependence, uncomplicated
CPT/HCPCS: 1263; 1395; 80307; 82436; 87070; 87449; 87450; 87804; 87804-59; 92610-GN; 93005; 93010; 93306; 96372; 96374; 96375; 96376; G0378; G0480; G8996-GN; G8997-GN; G8998-GN; J1644; J1940; J3490